=== PATIENT | male | born 1955 | race Caucasian/White ===

== ENCOUNTER → 2017-09-22 10:20 | Outpatient (CLI) | payer OTHER, SELFPAY ==
[2017-09-22 12:54] LABS: PSA,Total - Annual Screen 3.11 ng/mL (0.00-4.00)
== END ==
PROVIDERS: Family Provider Family Medicine; PCP Family Medicine; Visit Provider Family Medicine
DX: Z12.5 Encounter for screening for malignant neoplasm of prostate (principal)
CPT/HCPCS: 36415; 84153; G0103

== ENCOUNTER → 2019-05-12 08:43 | Outpatient (CLI) | payer MEDICARE, SELFPAY ==
[2017-06-08 11:08] VITALS: BMI 28.0
[2019-05-12 10:42] LABS: Anion Gap 8 (5-15); BUN 18 mg/dL (7-18); BUN/Creat Ratio 16.5 RATIO (10-20); Calcium,Total 8.9 mg/dL (8.5-10.1); Chloride 105 mmol/L (98-107); Cholesterol 174 mg/dL (200); Creatinine, Serum 1.09 mg/dL (0.70-1.30); EST Glomerular Filtration Rate 72 mL/min (>60); Est Glom Filt Rate - Afr Amer 87 mL/min (>60); Glucose 102 mg/dL (74-106); High Density Lipoprotein 73 mg/dL; PSA,Total - Annual Screen 5.26 ng/mL (0.00-4.00); Potassium 3.8 mmol/L (3.5-5.1); Sodium Level 139 mmol/L (136-145); Triglycerides 76 mg/dL; Very Low Density Lipoprotein 15 mg/dL (5-40)
== END ==
PROVIDERS: Family Provider Family Medicine; PCP Family Medicine; Referring Provider Family Medicine; Visit Provider Family Medicine
DX: Z13.220 Encounter for screening for lipoid disorders (principal); Z12.5 Encounter for screening for malignant neoplasm of prostate; Z13.1 Encounter for screening for diabetes mellitus
CPT/HCPCS: 36415; 80048; 80061; 84153; G0103

== ENCOUNTER → 2019-06-02 08:00 | Outpatient (CLI) | payer MEDICARE, SELFPAY ==
--- NOTE | 2019-06-02 | IMM_PTH ---
PATIENT: PHIL GALINDO LOC: IAN U#:[id number] AGE/SX: 70/M ROOM: RE06/02/[address]: Dr. Michael Mabry MD : 1955 BED: DIS: SPEC #: [id number] RECD: 06/06/19 10:02 STATUS: TYLER REAshley #: [id number] MATI: 06/02/19 00:[address]: Michael Mabry DEPT: IMMUNOHISTOCHEMISTRY RECD BY: Conchita Saha ENTERED: 06/06/19 10:05 SP TYPE: IMMUNO OTHR DR: Dr. Varun Palacios MD Tissues: B - PROSTATE RIGHT C - PROSTATE RIGHT Procedures: 34BE12 (add) P40 (add) 34BE12 (initial) PHYSICIAN & INSTITUTION [place] [id number] SPECIMEN INFORMATION: Tissue Source: Clinical Info: Elevated PSA Specimen Number: [id number] B & C CPT code: 98626, 66338 x3 METHODOLOGY: Deparaffinized sections of prefer/formalin-fixed tissue or PAP/DQ stained slides are incubated with monoclonal/polyclonal antibodies/oligonucleotide probes. Localization is made via biotin free immunoperoxidase method. Appropriate controls are performed and reacted as expected. Results on target cell population are indicated in the following table: RESULTS: ANTIBODY / CLONE RESULT Block B P40 (BC28) negative 34BE12 (34BE12) negative Block C P40 (BC28) negative 34BE12 (34BE12) negative These tests were developed and their performance characteristics determined by [facility]. They may not have been cleared or approved by the U.S. Food and Drug Administration. The FDA has determined that such clearance or approval is not necessary. The above immunohistochemical/dualISH markers are ordered and reviewed by the Pathologist. INTERPRETATION: B. Right prostate, mid, core biopsy: Adenocarcinoma. C. Right prostate, base, core biopsy: Adenocarcinoma. SJ:emigdio 06/06/19
--- NOTE | 2019-06-02 08:00 | PROSBIL_PTH ---
PATIENT: PHIL GALINDO LOC: IAN U#:[id number] AGE/SX: 70/M ROOM: RE06/02/[address]: Dr. Michael Mabry MD : 1955 BED: DIS: SPEC #: [id number] RECD: 06/02/19 17:18 STATUS: TYLER CROW #: [id number] MATI: 06/02/19 08:[address]: Michael Mabry DEPT: SURGICAL PATHOLOGY RECD BY: Steevn Zapata ENTERED: 06/03/19 08:28 SP TYPE: PROST BX KIMBERLY DR: Dr. Varun Palacios MD Tissues: A - PROSTATE RIGHT B - PROSTATE RIGHT C - PROSTATE RIGHT D - PROSTATE LEFT E - PROSTATE LEFT F - PROSTATE LEFT Procedures: PROSTATE BX HEADER OPERATION: Prostate biopsy PRE-OP DIAGNOSIS: Elevated PSA TISSUE SUBMITTED: A - Right apex, B - Right mid, C - Right base, D - Left apex, E - Left mid, F - Left base MICROSCOPIC DIAGNOSIS A. Right prostate, apex, core biopsy: Prostatic tissue, negative for malignancy. B. Right prostate, mid, core biopsy: Prostatic adenocarcinoma: Tara grade: 3+3=6 Number of cores involved: 2/2 Proportion of tissue involved: 5-10% Perineural invasion: Present Greatest tumor length: 1 cm, discontinuous See comment. C. Right prostate, base, core biopsy: Prostatic adenocarcinoma: Tara grade: 3+3=6 Number of cores involved: 1/2 Proportion of tissue involved: ~5% Perineural invasion: Not seen Greatest tumor length: 0.2 cm See comment. D. Left prostate, apex, core biopsy: Prostatic stromal tissue, negative for malignancy. E. Left prostate, mid, core biopsy: Prostatic tissue, negative for malignancy. F. Left prostate, base, core biopsy: Prostatic tissue, negative for malignancy. Focal atrophy and mild chronic inflammation. SJ:emigdio 06/06/19 COMMENT B. Immunohistochemistry ([id number]) supports the above diagnosis. One of the cores show two minute foci of carcinoma at the edges of the specimen at the distance of 1 cm. C. Immunohistochemistry ([id number]) supports the above diagnosis. Case has been reviewed in consultation with Dr. Patterson who concurs with the above diagnosis. IDC:AM MICROSCOPIC DESCRIPTION Slides are reviewed. GROSS DESCRIPTION A - Received is one container designated prostate, right apex. The specimen consists of one elongated fragment of light soliman-white soft tissue measuring 0.8 cm in length and 0.1 cm in diameter. The specimen is totally submitted in one cassette. B - Received is one container designated prostate, right mid. The specimen consists of two elongated fragments of light soliman-white soft tissue measuring 1.2 and 1.5 cm in length and 0.1 cm in diameter. The specimen is totally submitted in one cassette. C - Received is one container designated prostate, right base. The specimen consists of two elongated fragments of light soliman-white soft tissue measuring 1 and 1.5 cm in length and 0.1 cm in diameter. The specimen is totally submitted in one cassette. D - Received is one container designated prostate, left apex. The specimen consists of one elongated fragment of light soliman-white soft tissue measuring 0.5 cm in length and 0.1 cm in diameter. The specimen is totally submitted in one cassette. E - Received is one container designated prostate, left mid. The specimen consists of two elongated fragments of light soliman-white soft tissue each measuring 0.7 cm in length and 0.1 cm in diameter. The specimen is totally submitted in one cassette. F - Received is one container designated prostate, left base. The specimen consists of two elongated fragments of light soliman-white soft tissue each measuring 1.2 cm in length and 0.1 cm in diameter. The specimen is totally submitted in one cassette. / SJ:rg 06/03/19 TC:0 CPT: G0146 ADDENDUM ADDENDUM ADDENDUM ADDENDUM ADDENDUM ADDENDUM ADDENDUM ADDENDUM 06/16/2019 12:15 ADDENDUM 06/16/2019 12:15 ADDENDUM 06/16/2019 12:15 ADDENDUM 06/16/2019 12:15 ADDENDUM 06/16/2019 12:15 An order for Oncotype testing was received from Dr. Mabry. This necessitated case review, block and slide selection by pathologist at [facility]. Genomic Prostate Score = 23 Results of the complete Oncotype testing ([facility] report) are viewable in EMR under: Reports - Pathology - Lab Pathology Report, Scanned.
== END ==
PROVIDERS: Family Provider Family Medicine; PCP Family Medicine; Referring Provider Urology; Visit Provider Urology
DX: R97.20 Elevated prostate specific antigen [PSA] (principal)
CPT/HCPCS: 88305; 88341; 88342; G0416

== ENCOUNTER → 2019-06-28 09:14 | Outpatient (CLI) | payer MEDICARE, SELFPAY ==
[2017-06-08 11:08] VITALS: BMI 28.0
--- NOTE | 2019-06-28 09:18 | RAD_ITS ---
HISTORY: sciatica, right side TECHNIQUE: Lumbar spine 5 views Number of images including paperwork: 5 COMPARISON: CT 04/27/2017 FINDINGS: VERTEBRAE: No acute fracture. VERTEBRAL ALIGNMENT: No traumatic subluxation. DISKS AND JOINTS: Minimal discogenic degenerative changes with small anterior osteophytes. Mild facet arthropathy. SOFT TISSUES: Bilateral renal calculi measuring 3-5 mm. RAD/L/S Spine Min 4 Views IMPRESSION: 1. No acute osseous abnormality. 2. Minimal to mild degenerative changes. 3. Bilateral renal calculi. at 2314 Reported and signed by: Dhara Rivera MD Electronically Signed: Dhara Rivera MD at 23:14 EST Tel , Service support ,
--- NOTE | 2019-06-28 09:18 | RAD_ITS ---
HISTORY: right knee pain x 3 weeks ADDITIONAL HISTORY: None provided. TECHNIQUE: 4 views of the right knee including weightbearing AP, PA and lateral views and sunrise view Number of images including paperwork: 4 COMPARISON: None FINDINGS: Weightbearing images performed. BONES: No acute fracture. JOINTS: No subluxation. Mild medial compartment joint space narrowing. SOFT TISSUES: No distinct foreign body. RAD/Knee 4 or More Views IMPRESSION: No acute osseous abnormality. Mild medial compartment joint space narrowing. at 2311 Reported and signed by: Dhara Rivera MD Electronically Signed: Dhara Rivera MD at 23:11 EST Tel , Service support ,
== END ==
PROVIDERS: Family Provider Family Medicine; PCP Family Medicine; Referring Provider Family Medicine; Visit Provider Family Medicine
DX: M54.31 Sciatica, right side (principal); M25.561 Pain in right knee
CPT/HCPCS: 72110; 73564

== ENCOUNTER 2019-07-15 08:00 | Outpatient (RCR) | payer MEDICARE, SELFPAY ==
--- NOTE | 2019-06-23 12:03 | HP.PTEVAL_ITS ---
Patient's Visit Information PHIL GALINDO is a 64 year old M referred to Physical Therapy by Varun Palacios MD with a diagnosis of Back and Right Hip Pain. Date of Evaluation: 06/23/19 Physical Therapist: Lisa Suero DPT - Visit Plan Frequency: 2-3x /Week Duration: 3 Weeks Plan: NEUTRAL SPINE Exercises- work towards centralization- then progress towards other exercises as tolerated. No US. 06/23/19 HEP: postural education, isometric abdominals, hip adduction - Subjective Findings: About a month ago- back ache- has them occasionally- pretty healthy- presistant- ice made it better but then it got worse- started to travel down the right leg to the knee- when he stood or walked the pain would decrease but when he was sitting radha in the car it would throw in the right knee then it would quit after about 10 min. Daughter is PT at [facility]- saw MD who gave him Predinisone. Back pain is diminished but the knee is persistant. Goes to [place] [employer] regularly. Last week the pain in the knee and hip returned. The prednisone was done so he went to Meloxicam. Is taking but it was not helping. In the last 5 days he has been able to do nothing. When he is walking the pain is now in the fibular head and in the calf. When he sits down now the sharp pain subsides and then it goes numb. The pain is constantly changing. Today is better but still feels tingly in the right leg. Normally when he gets up in the AM is better- but today was bad. Current Exercises: quadraped to prayer, twisting, hamstring stretch, SKTC. Last time he was at [employer] was about a week ago. Sleep: not disturbed- side sleeper. PMHx:low risk prostate cancer Meds: Meloxicam, Flomax, Tamisol - Objective Posture: FH, RS- increased guarding. Gait: no LE deviation noted- decreased t runk rotation. HR/TR: able without UE A. SLS: 30 sec no LOB. ROM: Lumbar: flexion: hands to mid lora with hamstring tightness, extn: neutral with pain, SB: decreased by 25% with pain, Rot: decreased by 50% with pain. Hip/Knee/ankle: WFL. Strength: Core: fair minus, Hip: 4/5 throughout, Knee: 5/5, Ankle: 5/5. Sensation: WNL. Reflex: 2+ normal patellar. Flex: HS: mild, Gastroc: moderate. Palpation: not tender in lumbar or right knee. Special Test: Slump: positive on right, SLR: postive on right, Extn testing: increased s/s, flexion: increase s/s - Goals Goal 1:: Patient will be I with HEP and progression Goal Time Frame: 4-6 Weeks Goal 2:: Patient will report no radiating s/s for 1 week Goal Time Frame: 4-6 Weeks Goal 3:: Patient will maintain proper posture t/o tx session to demo increased core s/s Goal Time Frame: 4-6 Weeks - Rehabilitation Potential Physical Therapy Diagnosis: Patient presents with hypomobility- he has decreased core s/s leading to increased pain, radiating symptoms and decreased ability to perform ADL's. Rehabilitation Potential: Fair - Anticipated Interventions Patient/Client Instruction: Educate patient on: Benefits of Fitness Program Therapeutic Exercise to Include: Strength training, Balance training, Agility training, Body mechanics, Postural training, Flexibilty training, Dynamic Lumbar Stabilization For the Purpose of:: To improve muscle performance and motor function TENS: Yes Cryotherapy (ice pack, ice massage): Yes Thermo therapy (hot pack): Yes Ultrasound (thermal/non thermal): No Thank you for the opportunity to evaluate your patient. For Medicare and Medicare HMO plans, please review the plan of care and approve it. It will need to be FAXED BACK to us at [phone] for Medicare purposes. For Medicare only, by signing this I certify the plan of care. Please let me know if there are questions or concerns regarding this plan of care. Physician Signature:____ Date:
--- NOTE | 2019-07-15 08:26 | HP.PTREVAL ---
Varun Palacios MD, It has been my pleasure to treat PHIL GALINDO over the last 8 visits for Back and Right Hip Pain. Please see the progress note below for an update on the physical therapy plan of care! Subjective: Had taken last weekend off and had just done prone on elbows and DKTC- 6/10 in the left leg but the majority of the pain was in the right hip. 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 Today its in the back not the calf muscle. Is frustrated with the set backs. Has had an x-ray which showed OA in the back and knee. Objective/Function: Posture: FH, RS- increased guarding. Gait: decreased stance on the right LE. ROM: Lumbar: flexion: hands to mid lora with hamstring tightness, extn: neutral with pain, SB: decreased by 25% with pain, Rot: decreased by 50% with pain. VERY GUARDED Hip/Knee/ankle: WFL. Strength: Core: fair minus, Hip: 4/5 throughout, Knee: 5/5, Ankle: 5/5. Sensation: WNL. Flex: HS: mild, Gastroc: moderate. Special Test: Slump: positive on right, SLR: postive on right, Extn testing: increased s/s, flexion: increase s/s Plan Plan: Hold- return to MD for further evaluation Goals Goal 1:: Patient will be I with HEP and progression Goal Time Frame: 4-6 Weeks Goal 2:: Patient will report no radiating s/s for 1 week Goal Time Frame: 4-6 Weeks Goal 3:: Patient will maintain proper posture t/o tx session to demo increased core s/s Goal Time Frame: 4-6 Weeks Anticipated Interventions Patient/Client Instruction: Educate patient on: Benefits of Fitness Program Therapeutic Exercise to Include: Strength training, Balance training, Agility training, Body mechanics, Postural training, Flexibilty training, Dynamic Lumbar Stabilization For the Purpose of:: To improve muscle performance and motor function TENS: Yes Cryotherapy (ice pack, ice massage): Yes Thermo therapy (hot pack): Yes Ultrasound (thermal/non thermal): No Please do not hesitate to contact me at [phone] by phone or if you have questions or concerns regarding this new plan of care! Sincerely, MAU MunguiaT
== END 2019-07-15 19:00 | disposition home or self-care (01) ==
LOC: PT 08:00
PROVIDERS: Family Provider Family Medicine; PCP Family Medicine; Referring Provider Family Medicine; Visit Provider Family Medicine
DX: M25.551 Pain in right hip (principal)
CPT/HCPCS: 97110; 97162; 97530

== ENCOUNTER → 2019-07-27 16:46 | Outpatient (CLI) | payer MEDICARE, SELFPAY ==
--- NOTE | 2019-07-27 16:50 | MRI_ITS ---
STUDY: MRI LUMBAR SPINE WITHOUT CONTRAST REASON FOR EXAM: Male, 64 years old. TECHNIQUE: Standardized fat and water weighted pulse sequences were obtained in the sagittal and axial planes. COMPARISON: X-ray 06/28/2019. FINDINGS: T12-L1: Normal endplates. Normal disc height, hydration and morphology. Normal bilateral facet joints. Normal central canal and bilateral lateral recesses. Normal bilateral intervertebral neural foramina. There is straightening of the normal lumbar lordosis. There is no substantial scoliosis. Normal conus medullaris that terminates at the T12 level. L1-2: Normal endplates. Disc dehydration. Normal bilateral facet joints. Normal central canal and bilateral lateral recesses. Normal bilateral intervertebral neural foramina. L2-3: Normal endplates. Disc dehydration. Normal bilateral facet joints. Normal central canal and bilateral lateral recesses. Normal bilateral intervertebral neural foramina. L3-4: Normal endplates. Disc dehydration. Mild spondylotic bar. Facet hypertrophy. Borderline canal stenosis due to short pedicles and spondylosis. Mild foraminal encroachment, greater on the right, due to spurring. L4-5: Normal endplates. Disc dehydration. Small right paracentral protrusion, predominantly spondylotic, causing mild effacement of the thecal sac. There is moderate canal stenosis due to short pedicles and the protrusion. L5-S1: Normal endplates. Normal disc height, hydration and morphology. Normal bilateral facet joints. Normal central canal and bilateral lateral recesses. Normal bilateral intervertebral neural foramina. Normal visualized sacral ala. Normal visualized paraspinous soft tissue structures. MRI/Spine Lumbar (Routine) IMPRESSION: 1. L4-5 protrusion, predominantly spondylotic, causes thecal sac effacement and canal stenosis. 2. L3-4 borderline stenosis due to shortened pedicles. 3. Additional degenerative changes detailed above. Electronically Signed: Luna Palafox MD at 21:34 EST Tel , Service support ,
== END ==
PROVIDERS: Family Provider Family Medicine; PCP Family Medicine; Referring Provider Family Medicine; Visit Provider Family Medicine
DX: M54.31 Sciatica, right side (principal)
CPT/HCPCS: 72148

== ENCOUNTER → 2019-12-15 08:19 | Outpatient (CLI) | payer MEDICARE, SELFPAY ==
[2017-06-08 11:08] VITALS: BMI 28.0
[2019-12-15 09:28] LABS: PSA,Total- Diagnostic 4.74 ng/mL (0.0-4.0)
== END ==
PROVIDERS: PCP Family Medicine; Referring Provider Urology; Visit Provider Urology
DX: C61 Malignant neoplasm of prostate (principal)
CPT/HCPCS: 36415; 84153

== ENCOUNTER → 2020-06-12 08:49 | Outpatient (CLI) | payer MEDICARE, SELFPAY ==
[2017-06-08 11:08] VITALS: BMI 28.0
[2020-06-12 10:24] LABS: Anion Gap 9 (5-15); BUN 18 mg/dL (7-18); BUN/Creat Ratio 14.5 RATIO (10-20); Calcium,Total 8.9 mg/dL (8.5-10.1); Chloride 109 mmol/L (98-107); Creatinine, Serum 1.24 mg/dL (0.70-1.30); EST Glomerular Filtration Rate 62 mL/min (>60); Est Glom Filt Rate - Afr Amer 75 mL/min (>60); Glucose 121 mg/dL (74-106); Potassium 4.1 mmol/L (3.5-5.1); Sodium Level 139 mmol/L (136-145)
[2020-06-12 10:29] LABS: PSA,Total- Diagnostic 7.07 ng/mL (0.0-4.0)
== END ==
PROVIDERS: Urology; PCP Family Medicine; Referring Provider Family Medicine; Visit Provider Family Medicine
DX: C61 Malignant neoplasm of prostate (principal); Z13.1 Encounter for screening for diabetes mellitus; Z13.220 Encounter for screening for lipoid disorders
CPT/HCPCS: 36415; 80048; 84153

== ENCOUNTER → 2020-07-17 | Outpatient (CLI) | payer MEDICARE, SELFPAY ==
[2017-06-08 11:08] VITALS: BMI 28.0
--- NOTE | 2020-07-17 | IMM_PTH ---
PATIENT: PHIL GALINDO LOC: IAN U#:[id number] AGE/SX: 65/M ROOM: RE07/17/[address]: Dr. Michael Mabry MD : 1955 BED: DIS: 07/17/2020 SPEC #: [id number] RECD: 07/18/20 12:52 STATUS: TYLER REQ #: [id number] MATI: 07/17/20 00:[address]: Michael Mabry DEPT: IMMUNOHISTOCHEMISTRY RECD BY: Conhcita Saha ENTERED: 07/18/20 12:53 SP TYPE: IMMUNO OTHR DR: Dr. Varun Palacios MD Tissues: C - PROSTATE RIGHT D - PROSTATE LEFT E - PROSTATE LEFT Procedures: 34BE12 (add) P40 (add) 34BE12 (initial) PHYSICIAN & INSTITUTION [place] [id number] SPECIMEN INFORMATION: Tissue Source: C - Right prostate, base, core biopsy, D - Left prostate, apex, core biopsy, E - Left prostate, mid, core biopsy Clinical Info: Elevated PSA, prostate CA Specimen Number: [id number] C, D & E CPT code: 43926, 65226 x5 METHODOLOGY: Deparaffinized sections of prefer/formalin-fixed tissue or PAP/DQ stained slides are incubated with monoclonal/polyclonal antibodies/oligonucleotide probes. Localization is made via biotin free immunoperoxidase method. Appropriate controls are performed and reacted as expected. Results on target cell population are indicated in the following table: RESULTS: ANTIBODY / CLONE RESULT Block C P40 (BC28) negative 34BE12 (34BE12) negative Block D P40 (BC28) negative 34BE12 (34BE12) negative Block E P40 (BC28) positive 34BE12 (34BE12) positive These tests were developed and their performance characteristics determined by [facility]. They may not have been cleared or approved by the U.S. Food and Drug Administration. The FDA has determined that such clearance or approval is not necessary. The above immunohistochemical/dualISH markers are ordered and reviewed by the Pathologist. INTERPRETATION: C. Right prostate, base, core biopsy: Adenocarcinoma. D. Left prostate, apex, core biopsy: Adenocarcinoma. E. Left prostate, mid, core biopsy: Benign prostatic tissue. AM:emigdio 07/19/20
--- NOTE | 2020-07-17 08:00 | PROSBIL_PTH ---
PATIENT: PHIL GALINDO LOC: IAN U#:[id number] AGE/SX: 65/M ROOM: RE07/17/[address]: Dr. Michael Mabry MD : 1955 BED: DIS: 07/17/2020 SPEC #: [id number] RECD: 07/17/20 10:30 STATUS: TYLER REAshley #: [id number] MATI: 07/17/20 08:[address]: Michael Mabry DEPT: SURGICAL PATHOLOGY RECD BY: Lizzie Sawant ENTERED: 07/17/20 12:51 SP TYPE: PROST BX KIMBERLY DR: Dr. Varun Palacios MD Tissues: A - PROSTATE RIGHT B - PROSTATE RIGHT C - PROSTATE RIGHT D - PROSTATE LEFT E - PROSTATE LEFT F - PROSTATE LEFT Procedures: PROSTATE BX HEADER OPERATION: Prostate biopsy PRE-OP DIAGNOSIS: Elevated PSA, prostate CA TISSUE SUBMITTED: A - Right apex, B - Right mid, C - Right base, D - Left apex, E - Left mid, F - Left base MICROSCOPIC DIAGNOSIS A. Right prostate, apex, core biopsy: Adenocarcinoma. Tara grade: 6 (3+3) Cores involved: 1 out of 2 cores Tissue involved: 15% Greatest tumor length: 2.2 mm B. Right prostate, mid, core biopsy: Mild chronic inflammation. C. Right prostate, base, core biopsy: Adenocarcinoma. Tara grade: 6 (3+3) Cores involved: 1 out of 2 cores Tissue involved: 5% Greatest tumor length: 1.1 mm See comment. D. Left prostate, apex, core biopsy: Adenocarcinoma. [place] grade: 6 (3+3) Cores involved: 1 out of 2 cores Tissue involved: 5% Greatest tumor length: 2.5 mm See comment. E. Left prostate, mid, core biopsy: Focal high-grade prostatic intraepithelial neoplasia (HGPIN). Mild chronic inflammation. See comment. F. Left prostate, base, core biopsy: Mild chronic inflammation and focal acute inflammation. AM:emigdio 07/18/20 COMMENT C, D & E - Immunohistochemistry ([id number]) supports the above diagnosis. Reference is made to the patient's prostate core biopsy ([id number]) in which prostatic adenocarcinoma was identified. MICROSCOPIC DESCRIPTION Slides are reviewed. GROSS DESCRIPTION A - Received is one container designated prostate, right apex. The specimen consists of two elongated fragments of light soliman-white soft tissue each measuring 1.5 cm in length and 0.1 cm in diameter. The specimen is totally submitted in one cassette. B - Received is one container designated prostate, right mid. The specimen consists of two elongated fragments of light soliman-white soft tissue each measuring 1.5 cm in length and 0.1 cm in diameter. The specimen is totally submitted in one cassette. C - Received is one container designated prostate, right base. The specimen consists of two elongated fragments of light soliman-white soft tissue each measuring 1 cm in length and 0.1 cm in diameter. The specimen is totally submitted in one cassette. D - Received is one container designated prostate, left apex. The specimen consists of two elongated fragments of light soliman-white soft tissue each measuring 1.5 cm in length and 0.1 cm in diameter. The specimen is totally submitted in one cassette. E - Received is one container designated prostate, left mid. The specimen consists of two elongated fragments of light soliman-white soft tissue each measuring 1 cm in length and 0.1 cm in diameter. The specimen is totally submitted in one cassette. F - Received is one container designated prostate, left base. The specimen consists of two elongated fragments of light soliman-white soft tissue each measuring 1.5 cm in length and 0.1 cm in diameter. The specimen is totally submitted in one cassette. / AM:emigdio 07/17/20 TC:0 CPT: G0146 ADDENDUM ADDENDUM ADDENDUM ADDENDUM ADDENDUM ADDENDUM ADDENDUM ADDENDUM 08/21/2020 09:24 ADDENDUM 08/21/2020 09:24 ADDENDUM 08/21/2020 09:24 ADDENDUM 08/21/2020 09:24 ADDENDUM 08/21/2020 09:24 An order for Oncotype testing was received from Dr. Mabry. This necessitated case review, block and slide selection by pathologist at [facility]. Genomic Prostate Score = 19 Results of the complete Oncotype testing ([facility] report) are viewable in EMR under: Reports - Pathology - Lab Pathology Report, Scanned.
== END | disposition home or self-care (01) ==
LOC: LABSPEC 11:07
PROVIDERS: PCP Family Medicine; Visit Provider Urology
DX: C61 Malignant neoplasm of prostate (principal); R97.20 Elevated prostate specific antigen [PSA]
CPT/HCPCS: 88305; 88341; 88342; G0416

== ENCOUNTER → 2020-08-28 09:44 | Outpatient (CLI) | payer MEDICARE, SELFPAY ==
[2017-06-08 11:08] VITALS: BMI 28.0
[2020-08-28 10:45] LABS: PSA,Total- Diagnostic 5.36 ng/mL (0.0-4.0)
== END ==
PROVIDERS: PCP Family Medicine; Referring Provider Urology; Visit Provider Urology
DX: C61 Malignant neoplasm of prostate (principal)
CPT/HCPCS: 36415; 84153

== ENCOUNTER → 2021-03-01 08:59 | Outpatient (CLI) | payer MEDICARE, SELFPAY ==
[2017-06-08 11:08] VITALS: BMI 28.0
== END ==
PROVIDERS: PCP Family Medicine; Referring Provider Urology; Visit Provider Urology
DX: C61 Malignant neoplasm of prostate (principal)
CPT/HCPCS: 36415; 84153

== ENCOUNTER 2021-08-28 16:02 | Outpatient (CLI) | payer MEDICARE, SELFPAY | END 2021-08-28 23:59 | disposition short-term general hospital (02) | LOC: LAB 16:03 | PROVIDERS: Referring Provider Urology; Visit Provider Urology | DX: C61 Malignant neoplasm of prostate (principal) | CPT/HCPCS: 36415; 84153 ==

== ENCOUNTER 2021-08-29 06:31 | Emergency (ER) | payer MEDICARE, SELFPAY ==
[2021-08-29 06:32] VITALS: PULSE 77; RESP 18; TEMP 36; O2SAT 99; BMI 25.1
[2021-08-29 06:38] VITALS: BP 178/94
--- NOTE | 2021-08-29 06:40 | ED.VIS.GI ---
HPI HPI - GI History of Present Illness Chief Complaint: Flank Pain Informant: patient Abdominal Pain/Flank Pain Onset: Today (About 1 hour prior to arrival) Context: Sudden Onset (After got up from bed on the way to the bathroom, spontaneous onset without injury) Timing: Continuous Quality: Aching Location: Right Flank (More in low back) Current Severity: 11/17 Maximum Severity: Severe Worsened by: Nothing Relieved by: - (ibuprofen) Nausea/Vomiting/Emesis GI Symptom: Negative for Nausea and Vomiting Diarrhea/Melena/Hematochezia GI Symptom: Negative for Diarrhea, Melena and Hematochezia Associated Symptoms Associated Symptoms: Negative for Dysuria, Frequency, Hematuria and Urgency Narrative Narrative: Patient feels like he is having a kidney stone, he has had multiple in the past, 6 or 8 of them and has passed most of them. He did need surgery to get 1 out, remotely. He has had no recent illness or injury or trouble urinating. He took some ibuprofen prior to coming here and now the pain is significantly better. Pain is in his right low back without radiation around his flank or abdomen/groin. No testicular pain or urinary symptoms. No nausea, vomiting, fever. No hematuria. Prior similar symptoms: Yes (kidney stones) [facility] Medical History (Updated 08/29/21 @ 06:[address] Bronson Goodman MD) Enlarged prostate Nephrolithiasis Home Medications finasteride 1 tab PO DAILY 11/18/15 [History Last Taken 11/17/15 09:00] tamsulosin 0.4 mg PO DAILY 11/18/15 [History Last Taken 11/17/15 08:00 0.4mg] ondansetron 8 mg PO Q8H PRN PRN #20 tab 08/29/21 [Rx Last Taken Unknown] oxycodone-acetaminophen 1 tab PO Q4H PRN 4 Days #20 tablet 08/29/21 [Rx Last Taken Unknown] Allergy/AdvReac Type Severity Reaction Status Date / Time No Known Allergies Allergy Verified 05/29/17 09:05 Social History Smoking Status: Never smoker ROS ROS ED Constitutional Constitutional ED: Denies chills or fever(s) Eyes Eyes: Denies change in vision or diplopia ENT ENT ED: Denies rhinorrhea or sore throat Cardiovascular Cardiovascular: Denies chest pain or palpitations Respiratory/Chest Respiratory/Chest: Denies cough or dyspnea Gastrointestinal Gastrointestinal: Denies abdominal pain, diarrhea, nausea or vomiting Genitourinary Genitourinary ED: Reports as per HPI and flank pain; Denies dysuria or hematuria Musculoskeletal Musculoskeletal: Reports back pain; Denies neck pain Integumentary Denies abscess or rash Neurologic Neurologic: Denies headache(s), paresthesias or weakness Psychiatric Psychiatric: Denies anxiety or suicidal thoughts EXAM Physical Exam Const Vital Signs: 08/29/21 06:32 08/29/21 06:38 Temperature 96.8 F L Temperature Source Temporal Pulse Rate 77 Respiratory Rate 18 Blood Pressure 178/94 H Blood Pressure Mean 122 Pulse Ox 99 Oxygen Delivery Method Room Air Positive well nourished and well developed General Appearance ED: well developed and NAD HEENT Reports moist mucous membranes normocephalic and atraumatic Eyes PERRL and EOMs intact bilaterally Neck full ROM and supple Resp normal respiratory effort and clear to auscultation bilaterally Cardio regular rate, regular rhythm and no murmurs GI non-tender and non-distended Auscultation: normoactive bowel sounds Palpation: soft; Negative for pulsatile mass Back/Spine no CVA tenderness General Back: other FROM Extremity normal to inspection General Extremety ED: Negative for edema, pulses abnormal or tenderness General Extremity: Negative for edema or pulses abnormal Neuro oriented x3, CN's II-XII intact bilaterally and no sensory deficits noted Sensorium / Orientation: awake and alert Motor Exam: strength 5/5 throughout Skin no rashes or lesions noted and no wounds MDM MDM MDM Narrative Medical decision making narrative: Patient well-appearing in no distress. He states this feels just like a kidney stone, and requesting pain medication for home and expectant management. We discussed options, with regards to obtaining CT/imaging, and/or undergoing expectant management with symptom control. He is okay with the latter only, and avoiding imaging at this time. I think this is reasonable. I am ordering a urinalysis in order to rule out early signs of infection, and we will prescribe him oxycodone along with Zofran to use for symptoms, he drove himself and does not require anything right now and he is comfortable with this overall plan. We discussed reasons to return. Lab Data Attestation: I reviewed the patient's lab results. Labs: Laboratory Results - last 24 hr 08/29/21 06:45 Urine Color Yellow Urine Clarity Clear Urine pH 5.0 Ur Specific [place] 1.025 Urine Protein 30 H Urine Glucose (UA) Normal Urine Ketones Negative Urine Occult Blood 250 H Urine Nitrite Negative Urine Bilirubin Negative Urine Urobilinogen Normal Ur Leukocyte Esterase Negative Urine RBC 50-100 SEEN Urine WBC 0-5 SEEN Ur Squamous Epith Cells 0 SEEN Urine Bacteria 1+ Urine Mucus 1+ Discharge Plan Triage Chief Complaint: Flank Pain ED Provider: Bronson Goodman Dx/Rx/DC Orders Clinical Impression: Renal colic on right side Instructions: ED Kidney Stone w/ Colic Prescriptions: New oxycodone-acetaminophen [oxycodone-acetaminophen] 1 TABLET tablet 1 tab PO Q4H PRN (Reason: severe pain) 4 Days Qty: 20 RF: 0 ondansetron [ondansetron] 4 MG tablet 8 mg PO Q8H PRN PRN (Reason: Nausea) Qty: 20 RF: 0 No Action tamsulosin 0.4 MG capsule 0.4 mg PO DAILY RF: 0 finasteride 5 MG tablet 1 tab PO DAILY RF: 0 Primary Care Provider: Varun Palacios Referrals: Michael Mabry MD [STAFF PHYSICIAN] - 10-14 Days if not better Activity Restrictions/Additional Instructions: Return to ER for intractable symptoms or inability to urinate Disposition Disposition: Home, Self Care
[2021-08-29 06:51] LABS: Squamous Epithelial Cells - UA 0 SEEN /hpf (0-5)
[2021-08-29 06:55] LABS: Color, Urine Yellow (Yellow); Glucose, Dipstick Normal (Normal); Ketone-Dipstick Negative (Negative); Leukocyte Esterase-Dipstick Negative /ul (Negative); Nitrite-Dipstick Negative (Negative); Occult Blood-Urine 250 /ul (Negative); Protein-Dipstick 30 mg/dl (Negative); Specific Gravity, Urine 1.025 (1.002-1.030); Urine Bilirubin Dipstick Negative (Negative); Urine Clarity Clear (Clear); Urine Urobilinogen Normal (Normal)
[2021-08-29 07:02] LABS: Bacteria 1+ /hpf (None Seen); Mucous, Urine 1+ /hpf (<or=2+); Red Blood Cells-Urine 50-100 SEEN /hpf (0-5); White Blood Cells 0-5 SEEN /hpf (0-5)
[2021-08-29 07:24] VITALS: BP 124/69; PULSE 71; RESP 16; O2SAT 98
== END 2021-08-29 07:25 | disposition home or self-care (01) ==
LOC: ED 07:00
PROVIDERS: Emergency Provider Emergency Medicine; PCP Family Medicine; Visit Provider Emergency Medicine
DX: N23 Unspecified renal colic (principal); Z87.442 Personal history of urinary calculi; N40.0 Benign prostatic hyperplasia without lower urinary tract symptoms; Z79.899 Other long term (current) drug therapy
CPT/HCPCS: 81001; 99282

== ENCOUNTER 2021-09-05 08:58 | Outpatient (CLI) | payer MEDICARE, SELFPAY ==
--- NOTE | 2021-09-05 09:03 | RAD_ITS ---
INDICATION: ABD PAIN EXAMINATION/TECHNIQUE: X-RAY - supine XR Abdomen 1 View COMPARISON: CT abdomen and pelvis 04/27/2017. FINDINGS: BOWEL GAS PATTERN: No abnormally distended, air-filled bowel loops or air fluid levels. FREE AIR: Not exemplified on this single supine view. ORGANOMEGALY: Not seen. CALCIFICATIONS: No abnormal calcifications observed. LOWER CHEST: No acute pathology. BONES AND SOFT TISSUES: No acute pathology. RAD/Abdomen Single View IMPRESSION: Non-obstructive bowel gas pattern. Electronically Signed: Tate Parra DO at 21:00 EST ,
== END 2021-09-05 23:59 | disposition short-term general hospital (02) ==
LOC: RAD 09:00
PROVIDERS: Referring Provider Urology; Visit Provider Urology
DX: R10.84 Generalized abdominal pain (principal)
CPT/HCPCS: 74018

== ENCOUNTER 2021-09-19 10:09 | Outpatient (CLI) | payer MEDICARE, SELFPAY ==
--- NOTE | 2021-09-19 10:18 | MRI_ITS ---
MR Pelvis Male WO/W Contrast 09/19/2021 10:40 AM COMPARISON: None CLINICAL HISTORY: 66-year-old male with elevated PSA. PSA level not provided. TECHNIQUE: Standard prostate MRI protocol was used before and after administration of 16 cc of IV Dotarem. FINDINGS: Prostate volume: 20 cc PSA density: PSA level not provided. Length of membranous urethra: 16 mm Post-biopsy hemorrhage: None Multiparametric MR evaluation: Heterogeneous appearance of the central gland is consistent with benign prostatic hyperplasia. Lesion 1: LOCATION - in the right anterior transitional zone from mid gland to apex there is a 0.9 x 1.8 x 1.1 cm moderately T2 hypointense lenticular shaped homogeneous lesion (image 19, series 5). It demonstrates marked hyperintensity on DWI and marked hypointensity on ADC map. T2 - 5 DWI - 5 DCE - inconclusive Overall PI-RADS v2 score = 5 Capsular margin and neurovascular bundle: There is likely microcapsular extension anteriorly. Seminal vesicles: Normal Lymph nodes: No lymphadenopathy in the field of view. Bones: No suspicious lesions in the field of view. MRI/Pelvis W/WO Contrast IMPRESSION: -1.8 cm PI-RADS 5 lesion in the right anterior TZ from mid gland to apex. - No evidence of macroscopic extracapsular extension, however there is likely microcapsular extension. -No evidence of seminal vesicle invasion. - No lymphadenopathy. No suspicious bone lesions. Electronically Signed: Wiliam Carrasco MD at 22:00 EST ,
[2021-09-19 10:41] LABS: EGFR FINGERSTICK > 60.0000 mL/min (>60)
== END 2021-09-19 23:59 | disposition home or self-care (01) ==
PROVIDERS: Visit Provider Urology
DX: R97.20 Elevated prostate specific antigen [PSA] (principal)
CPT/HCPCS: 72197; A9575

== ENCOUNTER 2021-10-07 08:48 | Outpatient (CLI) | payer MEDICARE, SELFPAY ==
--- NOTE | 2021-10-07 08:59 | RAD_ITS ---
INDICATION: CALCULUS OF URETER EXAMINATION/TECHNIQUE: X-RAY - XR Abdomen 1 View COMPARISON: 09/05/2019 FINDINGS: BOWEL GAS PATTERN: Non-obstructive. No bowel or stomach distention. FREE AIR: Not assessed on a single supine view. ORGANOMEGALY: Not seen. CALCIFICATIONS: Coarse calcifications noted overlying both kidneys without significant interval change. Largest on the RIGHT measures approximately 8 mm in maximal dimension, largest on the LEFT measures approximately 3 mm. There are phleboliths in the pelvis. No distinct calcifications identified along the expected course the ureters bilaterally. LOWER CHEST: No acute pathology. BONES AND SOFT TISSUES: No acute pathology. RAD/Abdomen Single View IMPRESSION: 1. Non-obstructive bowel gas pattern. 2. Stable appearance of bilateral renal calcifications. 3. No distinct calcifications identified along the expected course the ureters bilaterally. Phleboliths are present in the pelvis. Electronically Signed: Jerry Temple MD at 22:45 EST ,
== END 2021-10-07 23:59 | disposition home or self-care (01) ==
LOC: RAD 08:51
PROVIDERS: Referring Provider Urology; Visit Provider Urology
DX: N20.1 Calculus of ureter (principal)
CPT/HCPCS: 74018

== ENCOUNTER 2021-10-08 16:16 | Outpatient (CLI) | payer MEDICARE, SELFPAY ==
--- NOTE | 2021-10-08 08:00 | PROSB_PTH ---
PATIENT: PHIL GALINDO LOC: [facility] U#:[id number] AGE/SX: 66/M ROOM: RE10/08/[address]: Dr. Michael Mabry MD : 1955 BED: DIS: 10/08/2021 SPEC #: [id number] RECD: 10/08/21 16:08 STATUS: TYLER KATHLEENAshley #: [id number] MATI: 10/08/21 08:[address]: Michael Mabry DEPT: SURGICAL PATHOLOGY RECD BY: Lizzie Sawant ENTERED: 10/09/21 09:04 SP TYPE: PROST BX OTHR DR: No Primary Care Phys Tissues: Prostate, NOS Procedures: Surgery Specimen Level IV HEADER OPERATION: Prostate biopsy PRE-OP DIAGNOSIS: Elevated PSA TISSUE SUBMITTED: Prostate, right anterior MICROSCOPIC DIAGNOSIS Right prostate, needle core biopsy: Adenocarcinoma. Hunt grade: 7 (3+4) Cores involved: 3 out of 4 cores Tissue involved: 35% Greatest tumor length: 6 millimeters AM:emigdio 10/10/2021 COMMENT Case has been reviewed in consultation with Dr. Chávez who concurs with the above diagnosis. IDC:SJ MICROSCOPIC DESCRIPTION Slides are reviewed. GROSS DESCRIPTION Received in fixative is one container labeled with the patient's name and designated prostate, right anterior. The specimen consists of four elongated fragments of light soliman-white soft tissue each measuring 1.5 cm in length and 0.1 cm in diameter. The specimen is totally submitted in two cassettes. / SJ:emigdio 10/09/2021 TC:0 CPT: 26227
[2021-10-31 15:00] LABS: Source Not Provided
[2021-10-31 15:04] LABS: Ca Oxalate, Dihydrate 20; Ca Oxalate, Monohydrate 80
== END 2021-10-08 23:59 | disposition home or self-care (01) ==
LOC: LABSPEC 16:18
PROVIDERS: Referring Provider Urology; Visit Provider Urology
DX: N20.0 Calculus of kidney (principal); C61 Malignant neoplasm of prostate
CPT/HCPCS: 82360; 88305

== ENCOUNTER → 2022-05-30 | Outpatient (CLI) | payer MEDICARE, SELFPAY ==
[2022-05-30 10:37] LABS: Anion Gap 7 (5-15); BUN 22 mg/dL (7-18); BUN/Creat Ratio 18.8 RATIO (10-20); Calcium,Total 8.9 mg/dL (8.5-10.1); Chloride 107 mmol/L (98-107); Cholesterol 183 mg/dL (200); Creatinine, Serum 1.17 mg/dL (0.70-1.30); EST Glomerular Filtration Rate 66 mL/min (>60); Est Glom Filt Rate - Afr Amer 80 mL/min (>60); Glucose 116 mg/dL (74-106); High Density Lipoprotein 64 mg/dL; Sodium Level 137 mmol/L (136-145); Triglycerides 54 mg/dL; Very Low Density Lipoprotein 11 mg/dL (5-40)
== END | disposition home or self-care (01) ==
LOC: MTLAB 08:05
PROVIDERS: PCP Nurse Practitioner Family; Referring Provider Nurse Practitioner Family; Visit Provider Nurse Practitioner Family
DX: Z13.1 Encounter for screening for diabetes mellitus (principal); Z13.220 Encounter for screening for lipoid disorders
CPT/HCPCS: 36415; 80048; 80061

== ENCOUNTER → 2022-06-10 | Outpatient (CLI) | payer MEDICARE, SELFPAY ==
[2022-06-10 10:37] LABS: Hemoglobin A1c 5.8 % (3.8-5.6)
== END | disposition home or self-care (01) ==
LOC: MTLAB 08:24
PROVIDERS: PCP Nurse Practitioner Family; Referring Provider Nurse Practitioner Family; Visit Provider Nurse Practitioner Family
DX: R73.01 Impaired fasting glucose (principal)
CPT/HCPCS: 36415; 83036

== ENCOUNTER 2024-02-18 21:18 | Emergency (ER) | payer MEDICARE, SELFPAY ==
[2024-02-18 21:18] VITALS: BP 179/102; PULSE 114; RESP 18; TEMP 36.4; O2SAT 98
--- NOTE | 2024-02-19 00:40 | EDS_ITS ---
HPI History of Present Illness Chief Complaint: Back Narrative Narrative: 69-year-old male presenting with back pain. He states he has a history of bulging discs. He has had a flareup in a couple of years. 2 days ago he reached for some toilet paper and felt a twinge in his back and has been worse since. Denies any previous surgery. He did go to the chiropractor twice this week. This is not helping. He tried some old oxycodone which did not seem to help his pain. No loss of bladder or bowel control. No saddle anesthesia. [facility] Medical History Nephrolithiasis Enlarged prostate Home Medications ?Medication ?Instructions ?Recorded ?Last Taken ?Type finasteride 5 mg tablet 1 tab PO DAILY 11/18/15 11/17/15 09:00 History tamsulosin 0.4 mg capsule 0.4 mg PO DAILY 11/18/15 11/17/15 08:00 History 0.4mg ondansetron 4 mg disintegrating 8 mg (2 x 4 mg) PO Q8H PRN PRN 08/29/21 Unknown Rx tablet Nausea #20 tabs oxycodone-acetaminophen 5 mg-325 1 tab PO Q4H PRN severe pain 4 08/29/21 Unknown Rx mg tablet days #20 TABLETS Allergy/AdvReac Type Severity Reaction Status Date / Time No Known Allergies Allergy Verified 02/18/24 21:18 Social History Smoking Status: Never smoker ROS ROS ED Constitutional Constitutional ED: Denies chills, fever(s) or sweats Eyes Eyes: Denies blurry vision or change in vision ENT ENT ED: Denies ear pain or sore throat Cardiovascular Cardiovascular: Denies chest pain, palpitations or racing heartbeat Respiratory/Chest Respiratory/Chest: Denies cough, dyspnea or sputum Gastrointestinal Gastrointestinal: Denies abdominal pain, constipation, diarrhea, nausea or vomiting Genitourinary Genitourinary ED: Denies dysuria, hematuria or urinary frequency Musculoskeletal Musculoskeletal: Reports back pain; Denies arthralgias, myalgias or neck pain Integumentary Denies abscess, Abrasions or rash Neurologic Neurologic: Denies headache(s), paresthesias or weakness Psychiatric Psychiatric: Denies anxiety, depression, suicidal ideation or suicidal thoughts Endocrine Endocrinology: Denies polydipsia or polyuria EXAM Physical Exam Const Vital Signs: 02/18/24 21:18 Temperature 97.6 F L Temperature Source Temporal Pulse Rate 114 H Respiratory Rate 18 Blood Pressure 179/102 H Blood Pressure Mean 127 Pulse Ox 98 Oxygen Delivery Method Room Air Positive well nourished HEENT Reports moist mucous membranes Eyes PERRL and EOMs intact bilaterally Resp normal respiratory effort Cardio regular rate and regular rhythm Back/Spine Back/Spine Narrative: Patient unable to lay down for examination. He was able to stand up out of the wheelchair in a hunched over position. He does not have any midline spinal deformities or step-offs. He is no midline spinal tenderness. His tenderness is more in the right lumbar paraspinal musculature and into the gluteal region. No rashes. No bruising. Extremity normal to inspection Neuro oriented x3 Sensorium / Orientation: alert Motor Exam: strength 5/5 throughout Psych mental status grossly normal Skin no rashes or lesions noted MDM MDM MDM Narrative Medical decision making narrative: Patient presenting with back pain. He request morphine. He was given morphine 4 mg IM as well as Toradol 15 mg and a shot of Kenalog. Will reassess. On reevaluation at 1:30 AM the patient is doing much better. He states he is ready to go home. He does not want any narcotic pain medicine. He states he will use ibuprofen at home. He also states he will use ice and heat alternating. Impression: 1. Lumbar strain Discharge Plan Triage Chief Complaint: Back ED Provider: Chano Miramontes Dx/Rx/DC Orders Instructions: ED Back Spasm, No Trauma Prescriptions: No Action tamsulosin 0.4 MG capsule 0.4 mg PO DAILY finasteride 5 MG tablet 1 tab PO DAILY Patient Comments: oxycodone-acetaminophen [oxycodone-acetaminophen] 1 TABLET tablet 1 tab PO Q4H PRN (Reason: severe pain) 4 Days Qty: 20 0RF ondansetron [ondansetron] 4 MG tablet 8 mg PO Q8H PRN PRN (Reason: Nausea) Qty: 20 0RF Primary Care Provider: Lisa Gray NP Referrals: Lisa Gray [employer], [employer]-C [Primary Care Provider] - Print Language: [place] Citizen Disposition Disposition: Home, Self Care
[2024-02-19] MEDS: Ketorolac 15 MG/ML Vial IM (00:48)
[2024-02-19] MEDS: Morphine 4 MG/ML Syringe IM (00:51)
[2024-02-19] MEDS: Triamcinolone Acetonide 40 MG/ML Vial IM (00:52)
== END 2024-02-19 01:53 | disposition home or self-care (01) ==
LOC: ED 02-19 01:49
PROVIDERS: Emergency Provider Student in an Organized Health Care Education/Training Program; PCP Nurse Practitioner Family; Visit Provider Student in an Organized Health Care Education/Training Program
DX: S39.012A Strain of muscle, fascia and tendon of lower back, initial encounter (principal); N40.0 Benign prostatic hyperplasia without lower urinary tract symptoms; X50.0XXA Overexertion from strenuous movement or load, initial encounter
CPT/HCPCS: 96372; 99282

== ENCOUNTER → 2025-06-16 | Outpatient (CLI) | payer MEDICARE, SELFPAY ==
[2025-06-16 12:23] LABS: Hematocrit 42.4 % (40-54); Hemoglobin 14.2 g/dL (13.0-16.5); Mean Corp Hgb Conc 33.5 g/dL (32-36); Mean Corpuscular Volume 92.8 fL (80-94); Mean Platelet Vol. 10.0 fl (6.2-12.0); Platelet Count 337 K/mm3 (150-450); RBC Distribution Width CV 12.5 % (11.6-14.6); RBC Distribution Width SD 42.5 fl (35.1-43.9); Red Blood Count 4.57 M/mm3 (4.6-6.2); White Blood Count 7.5 K/mm3 (4.4-11.0)
[2025-06-16 13:10] LABS: AST(SGOT) 24 U/L (<=37); Alanine Aminotransfer ALT/SGPT 18 U/L (<=46); Albumin, Serum 4.0 g/dL (3.4-4.8); Alkaline Phosphatase 51 U/L (40-129); Anion Gap 10 (5-15); BUN 20 mg/dL (4-19); BUN/Creat Ratio 18.9 RATIO (10-20); Calcium,Total 9.3 mg/dL (7.6-11.0); Carbon Dioxide 21.7 mmol/L (21.0-32.0); Chloride 105 mmol/L (98-108); Cholesterol 187 mg/dL (<=200); Globulin 2.6 g/dL (2.2-4.2); Glucose 104 mg/dL (70-99); Low Density Lipoprotein Calc. 103 mg/dL; PSA,Total - Annual Screen 0.12 ng/mL (0.02-4.00); Potassium 4.1 mmol/L (3.3-5.1); Triglycerides 123 mg/dL; Very Low Density Lipoprotein 25 mg/dL (5-40); cholesterol:hdl ratio screen 3.02
== END | disposition home or self-care (01) ==
LOC: MFPLAB 10:15
PROVIDERS: PCP Nurse Practitioner Family; Referring Provider Family Medicine; Visit Provider Family Medicine
DX: Z00.00 Encounter for general adult medical examination without abnormal findings (principal); C61 Malignant neoplasm of prostate; E78.5 Hyperlipidemia, unspecified; Z13.1 Encounter for screening for diabetes mellitus; Z12.5 Encounter for screening for malignant neoplasm of prostate
CPT/HCPCS: 36415; 80053; 80061; 83036; 84153; 85027; G0103